=== PATIENT | female | born 1955 ===

== ENCOUNTER 2024-09-05 05:55 | Day surgery (SDC) | payer OTHER ==
[2024-09-05] MEDS ORDERED: MIDAZOLAM HCL 2 MG/2 ML VIAL IV ONE (13:00)
[2024-09-05] MEDS ORDERED: fentaNYL CITRATE 50 MCG/ML AMPUL IV ONE (13:00)
[2024-09-05] MEDS ORDERED: DIPHENHYDRAMINE HCL 50 MG/ML VIAL 1ML IV ONE (13:00)
== END 2024-09-05 14:50 | disposition home or self-care (01) ==
LOC: AMB-ENDOS 05:55
PROVIDERS: ATTEND Surgery
DX: K62.5 Hemorrhage of anus and rectum (principal); K57.30 Diverticulosis of large intestine without perforation or abscess without bleeding; K64.4 Residual hemorrhoidal skin tags